=== PATIENT | male | born 1990 | race American Indian/Alaskan Native ===

== ENCOUNTER 2018-06-23 08:20 | Emergency (ER) | payer SELFPAY ==
[2018-06-23 08:45] VITALS: BP 120/85
--- NOTE | 2018-06-23 08:54 | Emergency Department Report ---
HPI - General Chief Complaint: Allergic Reaction Time Seen by Provider: 06/23/18 08:49 - HPI HPI: Patient is a 28-year-old Male is presenting with lip swelling and itching on his entire body for the past week and a half. Patient states he has had some slight improvement secondary to take Benadryl her symptoms have not improved. Patient has no new exposures that he knows of. Patient is not on any medications at this time except for the Benadryl. Patient denies any shortness of breath nausea vomiting diarrhea at this time. ED Past Medical Hx - Past Medical History Previous Medical History?: No - Surgical History Past Surgical History?: No - Social History Smoking Status: Never Smoker Substance Use Type: None - Medications Home Medications: Home Medications Medication Instructions Recorded Confirmed Last Taken Type predniSONE [Deltasone] 20 mg PO QDAY #5 tab 06/23/18 Unknown Rx ED Review of Systems ROS: Stated complaint: FACE SWOLLEN/CHEST PAIN Other details as noted in HPI Comment: All other systems reviewed and negative Physical Exam - Physical Exam Vital Signs: Vital Signs 06/23/18 08:40 Temperature 98.5 F Pulse Rate 88 Respiratory 16 Rate Blood Pressure 120/85 O2 Sat by Pulse 99 Oximetry General: Patient alert and oriented 3. HEENT exam shows edema to the upper lip however the patient's oropharynx is clear and tongue is not swollen. Lungs are clear to auscultation bilaterally. Heart exam is within normal limits. Skin exam shows no rash. Neuro exam patient is alert and oriented 3 moving all extremities spontaneously. ED Course Vital Signs 06/23/18 08:40 Temperature 98.5 F Pulse Rate 88 Respiratory 16 Rate Blood Pressure 120/85 O2 Sat by Pulse 99 Oximetry ED Medical Decision Making - Medical Decision Making Patient is to continue with Benadryl also add steroids to the patient's regimen patiently referred to animal husbandry manager Critical care attestation.: If time is entered above; I have spent that time in minutes in the direct care of this critically ill patient, excluding procedure time. ED Disposition Clinical Impression: Allergic reaction Qualifiers: Encounter type: initial encounter Qualified Code(s): T78.40XA - Allergy, unspecified, initial encounter Disposition: DC-01 TO HOME OR SELFCARE Is pt being admited?: No Does the pt Need Aspirin: No Condition: Stable Instructions: Allergies (ED) Referrals: KEM PRAJAPATI MD [Referring] - 3-5 Days Time of Disposition: 09:04
[2018-06-23] MEDS ORDERED: DECADRON IM ONE (08:56)
== END 2018-06-23 09:34 | disposition home or self-care (01) ==
LOC: ED 08:20
DX: T78.40XA Allergy, unspecified, initial encounter (principal); Z88.0 Allergy status to penicillin; X58.XXXA Exposure to other specified factors, initial encounter
CPT/HCPCS: 93005; 93010; 99282; J1100